=== PATIENT | female | born 1970 | race Caucasian/White ===

== ENCOUNTER → 2024-10-15 | Outpatient (CLI) | payer BC, SELFPAY ==
--- NOTE | 2024-10-15 10:15 | XR_ITS ---
Examination: Screening digital mammography, bilateral Computer aided detection 3-D breast Tomosynthesis, bilateral Date and time of exam: October 15, 2019 5:10 AM Compared to mammograms dating to April 16, 2017 Indication: Screening Technique: Nonmagnified MLO, CC views of the breasts to been obtained, reconstructed from 3-D Tomosynthesis images. R2 computer aided detection program utilized for evaluation of suspicious masses and/or abnormal calcifications. 3-D Tomosynthesis images obtained. Findings: The breasts are heterogeneously dense, which may obscure small masses Benign calcifications. No interval suspicious masses Impression: BI-RADS category II: Benign Findings. Recommend 1 year follow-up mammogram.
== END | disposition home or self-care (01) ==
LOC: CDIM 09:48
PROVIDERS: Referring Provider Family Medicine; Visit Provider Family Medicine
DX: Z12.31 Encounter for screening mammogram for malignant neoplasm of breast (principal); R92.323 Mammographic fibroglandular density, bilateral breasts; R92.1 Mammographic calcification found on diagnostic imaging of breast
CPT/HCPCS: 77063; 77067

== ENCOUNTER → 2024-12-17 | Outpatient (CLI) | payer BC, SELFPAY ==
--- NOTE | 2024-12-17 11:17 | XR_ITS ---
Examination: Knee, right , 3 views Technique: Knee AP, lateral, oblique 3 views Date and time of exam: December 17, 2024 1215 hours INDICATIONS: Right knee pain beginning 3 months ago. FINDINGS: Mild narrowing medial joint space Early osteoarthritis patellofemoral joint No fracture or patellar dislocation IMPRESSION: Early osteoarthritis medial and patellofemoral joints
[2024-12-17 13:21] LABS: Cardiac Risk Estimate 4.3 RATIO (3.7-5.6); Cholesterol 180 mg/dL (132-200); HDL Cholesterol 42 mg/dL (40-60); LDL Cholesterol,Calculated 93 mg/dL (0-130); Triglycerides 227 mg/dL (30-150)
[2024-12-17 13:23] LABS: Glucose Estimated Average 160 mg/dL (80-131); Hemoglobin A1C 7.2 % Hgb (4.8-6.0)
== END | disposition home or self-care (01) ==
LOC: CDIM 11:06 → COPL 12:21
PROVIDERS: PCP Family Medicine; Referring Provider Family Medicine; Visit Provider Family Medicine
DX: M17.11 Unilateral primary osteoarthritis, right knee (principal); E11.9 Type 2 diabetes mellitus without complications; E78.2 Mixed hyperlipidemia
CPT/HCPCS: 36415; 73562; 80061; 83036

== ENCOUNTER → 2025-03-30 | Outpatient (CLI) | payer BC, SELFPAY ==
[2025-03-30 11:48] LABS: Glucose Estimated Average 137 mg/dL (80-131); Hemoglobin A1C 6.4 % Hgb (4.8-6.0)
[2025-03-30 11:49] LABS: Anion Gap 9 (7-16); BUN/Creatinine Ratio 18 Ratio (12-20); Blood Urea Nitrogen 14 mg/dL (9-23); Calcium 9.2 mg/dL (8.3-10.6); Carbon Dioxide 27.9 mMol/L (20.0-31.0); Chloride 103 mMol/L (98-107); Creatinine (Component) 0.8 mg/dL (0.6-1.3); Glucose 109 mg/dL (74-106); Osmolality,Calculated 280 (275-295); Potassium 4.5 mMol/L (3.4-5.1); Sodium 140 mMol/L (136-145); eGFR > 60 See Note
[2025-03-30 11:50] LABS: Creatinine MALB Rnd Ur 71 mg/dL (30-125); Microalbumin Creat Ratio 24 mg/gCrea (<30); Microalbumin, Random Urine 17 mg/L (0-300)
== END | disposition home or self-care (01) ==
LOC: COPL 10:29
PROVIDERS: PCP Family Medicine; Referring Provider Family Medicine; Visit Provider Family Medicine
DX: E11.65 Type 2 diabetes mellitus with hyperglycemia (principal)
CPT/HCPCS: 36415; 80048; 82043; 82570; 83036

== ENCOUNTER → 2025-06-13 | Outpatient (CLI) | payer BC, SELFPAY ==
[2025-06-13 13:49] LABS: OBS Performed By LAB; OBS QC OK? Yes
[2025-06-13 15:19] LABS: OBS Developer Lot # 4-24-551749; Occult Blood, Stool Negative (Negative); Occult Blood, Stool #2 Negative (Negative); Occult Blood, Stool #3 Negative (Negative)
[2025-06-13 15:20] LABS: OBS Developer Expiration Date 2-28-27
== END | disposition home or self-care (01) ==
LOC: SLDO 13:39
PROVIDERS: Referring Provider Family Medicine; Visit Provider Family Medicine
DX: Z12.11 Encounter for screening for malignant neoplasm of colon (principal)
CPT/HCPCS: 82270

== ENCOUNTER → 2025-09-13 | Outpatient (CLI) | payer BC, SELFPAY ==
[2025-09-13 11:37] LABS: Glucose Estimated Average 128 mg/dL (80-131); Hemoglobin A1C 6.1 % Hgb (4.8-6.0)
[2025-09-13 11:41] LABS: Anion Gap 10 (7-16); BUN/Creatinine Ratio 12 Ratio (12-20); Blood Urea Nitrogen 11 mg/dL (9-23); Calcium 9.4 mg/dL (8.3-10.6); Carbon Dioxide 27.3 mMol/L (20.0-31.0); Cardiac Risk Estimate 4.3 RATIO (3.7-5.6); Chloride 104 mMol/L (98-107); Cholesterol 166 mg/dL (132-200); Creatinine (Component) 0.9 mg/dL (0.6-1.3); Glucose 123 mg/dL (74-106); HDL Cholesterol 39 mg/dL (40-60); LDL Cholesterol,Calculated 83 mg/dL (0-130); Osmolality,Calculated 281 (275-295); Potassium 4.3 mMol/L (3.4-5.1); Sodium 141 mMol/L (136-145); Triglycerides 222 mg/dL (30-150); eGFR > 60 See Note
== END | disposition home or self-care (01) ==
LOC: COPL 10:26
PROVIDERS: PCP Family Medicine; Referring Provider Family Medicine; Visit Provider Family Medicine
DX: E11.65 Type 2 diabetes mellitus with hyperglycemia (principal)
CPT/HCPCS: 36415; 80048; 80061; 83036